=== PATIENT | male | born 1955 | race Caucasian/White ===

== ENCOUNTER → 2024-10-29 10:53 | Outpatient (REF) | payer MEDICARE, BC, SELFPAY | LOC: RAD 10:53 | PROVIDERS: ATTENDING PHYSICIAN Family Medicine | DX: G47.62 Sleep related leg cramps (principal); R25.2 Cramp and spasm; I25.10 Atherosclerotic heart disease of native coronary artery without angina pectoris | CPT/HCPCS: 93922; 93925 ==

== ENCOUNTER → 2024-12-21 11:20 | Outpatient (REF) | payer MEDICARE, BC, SELFPAY | LOC: PAVMRI 11:20 | PROVIDERS: FAMILY PHYSICIAN Family Medicine | DX: M17.12 Unilateral primary osteoarthritis, left knee (principal) | CPT/HCPCS: 73721 ==